=== PATIENT | female | born 2000 | race Caucasian/White ===

== ENCOUNTER 2021-11-06 11:00 | Emergency (ER) | payer OTHER, SELFPAY ==
--- NOTE | ~2021-11-06 | CT_ITS ---
EXAMINATION: CT ABDOMEN AND PELVIS WITHOUT CONTRAST CLINICAL INFORMATION: Epigastric and right lower quadrant tenderness. Guarding. COMPARISON: None TECHNIQUE: Multidetector volumetric imaging was performed from the superior aspect of the liver through the pubic symphysis. Sagittal and coronal reformatted images were obtained on the technologist's workstation. This CT examination was performed using dose optimization techniques as appropriate, variously including the following: *Automated exposure control *Adjustment of mA and/or kV according to patient size (this includes techniques or standardized protocols for targeted exams where dose is matched to indication/reason for exam; i.e. extremities or head) *Use of iterative reconstruction technique DLP: 318 mGy-cm FINDINGS: LUNG BASES: The visualized lung bases are unremarkable. LIVER, GALLBLADDER, AND BILIARY TREE: The liver is normal in size, shape, and attenuation. No focal hepatic lesion or biliary ductal dilatation is present. The gallbladder is unremarkable with no evidence of radiopaque gallstones, gallbladder wall thickening, or obvious pericholecystic inflammatory changes. PANCREAS: Unremarkable. SPLEEN: Unremarkable. ADRENAL GLANDS: Unremarkable. KIDNEYS AND URETERS: The kidneys are normal in size, shape, and attenuation. No hydronephrosis, hydroureter, or calculi seen. No perinephric stranding. BLADDER: Unremarkable. GASTROINTESTINAL TRACT: The stomach is unremarkable. Normal caliber of the small bowel. There is no obstruction. Normal appendix. Decompressed appearance of the sigmoid colon with question of mild wall thickening. The remainder of the colon is unremarkable. No free air. No free fluid. ABDOMINAL WALL: No significant hernia is appreciated. LYMPH NODES: Normal. VASCULAR: Unremarkable. PELVIC VISCERA: The uterus and adnexa are unremarkable. OSSEOUS STRUCTURES: No acute or suspicious osseous abnormality. CT/CT abdomen pelvis wo con IMPRESSION: Normal appendix. Decompressed sigmoid colon with question of mild wall thickening. This could represent a mild colitis. This could also simply be within normal limits. Fleischner guidelines were followed.
--- NOTE | ~2021-11-06 | US_ITS ---
EXAMINATION: US PELVIS CLINICAL INFORMATION: Right adnexal pain. Vaginal bleeding. COMPARISON: None TECHNIQUE: Ultrasound of the pelvis is performed using both transabdominal and transvaginal transducers along with Doppler. Transvaginal imaging is performed due to inadequate visualization transabdominally. FINDINGS: Uterus: The uterus is anteverted and measures 6.4 x 3.6 x 4.2 cm. The double wall endometrial thickness is 0.5 mm. Blood products in the endometrial canal noted. The uterus is smooth in contour and has normal myometrial echogenicity. No visible fibroid. Adnexa: Both ovaries are visualized. There is normal color flow to the adnexa. There is no ovarian torsion. Trace pelvic free fluid. Normal arterial and venous spectral waveforms are seen bilaterally. Right ovary measures 3.6 x 1.9 x 2.6 cm. Multiple peripheral ovarian follicles are noted, greater than 10. Left ovary measures 3.4 x 2.2 x 2.3 cm. Multiple peripheral ovarian follicles are noted, greater than 10. US/US pelvic ovarian doppler IMPRESSION: No active ovarian torsion or suspicious mass. Appearance suggestive of polycystic ovarian syndrome.
--- NOTE | ~2021-11-06 | US_ITS ---
EXAMINATION: US PELVIS CLINICAL INFORMATION: Right adnexal pain. Vaginal bleeding. COMPARISON: None TECHNIQUE: Ultrasound of the pelvis is performed using both transabdominal and transvaginal transducers along with Doppler. Transvaginal imaging is performed due to inadequate visualization transabdominally. FINDINGS: Uterus: The uterus is anteverted and measures 6.4 x 3.6 x 4.2 cm. The double wall endometrial thickness is 0.5 mm. Blood products in the endometrial canal noted. The uterus is smooth in contour and has normal myometrial echogenicity. No visible fibroid. Adnexa: Both ovaries are visualized. There is normal color flow to the adnexa. There is no ovarian torsion. Trace pelvic free fluid. Normal arterial and venous spectral waveforms are seen bilaterally. Right ovary measures 3.6 x 1.9 x 2.6 cm. Multiple peripheral ovarian follicles are noted, greater than 10. Left ovary measures 3.4 x 2.2 x 2.3 cm. Multiple peripheral ovarian follicles are noted, greater than 10. US/US pelvic and transvaginal IMPRESSION: No active ovarian torsion or suspicious mass. Appearance suggestive of polycystic ovarian syndrome.
[2021-11-06 11:03] VITALS: BP 113/68; PULSE 67; RESP 18; TEMP 36.9; O2SAT 100; BMI 22.2
[2021-11-06 11:19] LABS: MANUAL DIFF FLAG NO
[2021-11-06 11:23] LABS: Basophils Percent Auto 0.2 % (0-2); Eosinophils Absolute Auto 0.1 X10*3/uL (0.0-0.4); Eosinophils Percent Auto 0.9 % (0-4); Hematocrit 39.8 % (37.0-47.0); Hemoglobin 12.9 g/dl (12.0-16.0); Imm Gran Abs Auto 0.06 X10*3/uL (0.00-0.03); Imm Gran Pct Auto 0.6 % (0.0-0.4); Lymphocytes Absolute Auto 1.1 X10*3/uL (1.2-4.9); Lymphocytes Percent Auto 11.5 % (20-40); Mean Corpuscular HGB Conc 32.4 g/dl (31.0-35.0); Mean Corpuscular Volume 89.4 fL (80.0-98.0); Mean Platelet Volume 11.1 fL (9.4-12.3); Monocytes Absolute Auto 0.7 X10*3/uL (0.1-1.2); Monocytes Percent Auto 7.6 % (2-11); Neutrophils Absolute Auto 7.5 x10*3/uL (2.0-8.3); Neutrophils Percent Auto 79.2 % (45-73); Platelet Count 234 X10*3/uL (160-400); Red Blood Count 4.45 X10*6/uL (4.20-5.50); Red Cell Distribution Width 13.4 % (11.0-16.0); White Blood Count 9.4 X10*3/uL (4.8-10.8)
[2021-11-06 11:37] LABS: Alanine Aminotransferase 21 U/L (0-31); Alkaline Phosphatase 67 U/L (39-117); Anion Gap 10 (12-20); Aspartate Amino Transferase 19 U/L (5-31); Bilirubin Total 0.7 mg/dL (0.0-1.0); Blood Urea Nitrogen 14 mg/dL (9-16); Calcium 9.4 mg/dL (8.4-10.2); Carbon Dioxide 25 mmol/L (22-29); Chloride 107 mmol/L (96-108); Creatinine Clr Calc Pharmacy 78.9; Estimated Glomerular Filt Rate > 60; Glucose Random 99 mg/dL (60-115); Potassium 4.6 mmol/L (3.3-5.1); Sodium 137 mmol/L (135-145); Total Protein 7.9 g/dL (6.5-8.0)
[2021-11-06 11:40] VITALS: BP 113/63; PULSE 66; RESP 16; TEMP 36.6; O2SAT 100
--- NOTE | 2021-11-06 12:04 | ED_ITS ---
HPI - General Adult General Chief complaint: Abdominal Pain Stated complaint: abd pain vaginal bleeding Time Seen by Provider: 11/06/21 11:49 Source: patient Mode of arrival: ambulatory Limitations: no limitations History of Present Illness HPI narrative: 21-year-old female presents with 2 weeks of right lower quadrant pain and right pelvic pain with intermittent vaginal bleeding. States the pain is constant, is sharp and stabbing, and is worsening. Feels like period cramps. Patient's last menstrual period was October 27, and then she got her period twice in September. She has had some dysuria as well. No nausea, vomiting, diarrhea, vaginal discharge, chest pain, shortness of breath, heart palpitations. States her periods generally come once a month and she does not have spotting in between periods She has never been . She does have a new sex partner, she does not use control or condoms. Patient is not on any medications, states that she was diagnosed hypothyroid, but has not been refilling her levothyroxine medication Related Data Previous Rx's Medication Instructions Recorded doxycycline hyclate 100 mg tablet 100 mg PO BID 7 Days #14 tab 11/06/21 Allergies Allergy/AdvReac Type Severity Reaction Status Date / Time No Known Allergies Allergy Verified 11/06/21 11:08 Review of Systems Constitutional: Constitutional: Denies body ache(s), Denies chills, Denies fatigue, Denies fever(s), Denies headache(s), Denies malaise and Denies weakness Eyes: Eyes: Denies blurry vision and Denies diplopia ENT: Denies vertigo, Denies dizziness, Denies otalgia, Denies headache(s), Denies mouth pain and Denies sore throat Cardiovascular: Cardiovascular: Denies chest pain, Denies syncope, Denies leg edema, Denies lightheadedness, Denies Loss of Consciousness, Denies palpitations and Denies dyspnea Respiratory: Respiratory: Denies chest congestion, Denies cough and Denies dyspnea Gastrointestinal: Gastrointestinal: Reports abdominal pain, Denies hematochezia, Denies coffee ground emesis, Denies constipation, Denies diarrhea, Denies nausea and Denies vomiting Genitourinary: Genitourinary: Reports abnormal vaginal bleeding, Denies genital pruritis, Reports dysuria, Reports pelvic pain, Reports flank pain, Denies urinary incontinence, Denies urinary hesitancy, Denies urinary urgency, Denies vaginal discharge and Denies vaginal odor Musculoskeletal: Musculoskeletal: Reports no additional musculoskeletal complaints Neurologic: Denies confusion, Denies vertigo, Denies dizziness, Denies syncope, Denies headache(s) and Denies weakness Psychiatric: Psychiatric: Denies anxiety, Denies confusion and Denies depression Endocrine: Endocrine: Denies fatigue and Denies palpitations PMF Past Medical History Medical History (Updated 11/06/21 @ 14:58 by DEMETRI Falk) No known health problems Social History Social History Advance Directives: No Advance Directives Information Provided: No Patient : No Physical Exam ED Vital Signs: Vital Signs - 24 hr 11/06/21 11:03 11/06/21 11:40 11/06/21 12:58 Temperature 98.4 F 97.9 F 98.6 F Pulse Rate 67 66 59 Respiratory Rate 18 16 15 Blood Pressure 113/68 113/63 111/61 Pulse Oximetry 100 100 99 BMI result Body Mass Index 22.2 Const General: comfortable, no acute distress, well developed, alert and awake; No confusion Nutritional Appearance: well nourished Orientation/consciousness: patient oriented x3 and No confusion Limitations: no limitations HENMT Head: Yes normal to inspection, Yes normocephalic and Yes atraumatic Ears: hearing grossly normal bilaterally, external ears normal, TM's normal bilaterally and EAC's normal General nose exam: Normal external nose present Face and sinus: Yes normal facial exam and Yes sinuses nontender Mouth: Normal oral and palatal mucosa present Throat: Yes posterior oropharynx normal Eyes Conjunctivae: conjunctivae normal Pupils: Equal, round and reactive pupils present EOM: EOMs intact bilaterally Neck Neck: Yes full ROM, Yes no lymphadenopathy and Yes supple Resp Effort & Inspection: normal respiratory effort and able to speak in complete sentences Auscultation: clear to auscultation bilaterally, no crackles, no rales, no rhonchi and no wheezes Cardio Rate: regular rate Rhythm: regular rhythm Heart sounds: S1 normal heart sound present and S2 normal heart sound present GI Inspection: Yes normal to inspection Palpation (GI): Soft to palpation, Tenderness to palpation present (GI) in the epigastrum, at McBurney's point (tender) and Rovsing's sign positive, Guarding due to palpation present (GI) in the LLQ, in the RLQ and other (epigastric) and not rigid Percussion: Yes normal to percussion Auscultation: normal bowel sounds General: Yes CVA tenderness on the right (mild) External Female Exam: normal external appearance, normal appearance of the urethra, No externally tender and No external swelling Speculum Exam - Vagina: abnormal vaginal discharge bloody, no lesions, vaginal bleeding and nontender Speculum Exam - Cervix: normal appearance of the cervix, normal palpation and Cervical os closed Bimanual exam- vagina & uterus: normal palpation and no cervical motion tenderness Bimanual Exam- Adnexa, other: tender on the right OB/external & speculum: vaginal bleeding Back/Spine/Pelvis Back: CVA tenderness Skin General skin exam: no rashes or lesions noted Neuro General: patient oriented x3 and No confusion Cranial nerves: Yes Equal, round and reactive pupils present Extrem General: Yes normal to inspection and Yes full ROM Psych Appearance: grossly normal Affect: normal affect Attitude: cooperative Thought process: Normal thought process present Course Course Course Narrative: 12:04 pm 21-year-old female presents with 2 weeks of right lower quadrant pain, right pelvic pain, and vaginal bleeding. On exam, patient has stable vitals, is afebrile, has mild right CVA tenderness, has tenderness and guarding in her right lower quadrant, and her epigastrium, diffusely tender throughout her abdomen exam shows vagina bleeding, with right adnexal tenderness. No CMT. As gonorrhea, chlamydia, Trichomonas, BV swabs were all performed. Will get CT with contrast because patient is BMI is 22, need to rule out acute abdominal pathology. Will get pelvic ultrasound for right adnexal tenderness Be due to global IV contrast shortage, will order CT abdomen pelvis with oral contrast, no IV contrast. Reevaluation(s) Reevaluation #1: TSH 4.49, hCG less than 2. Urine shows blood, no evidence of infection No Trichomonas or yeast Ultrasound shows no torsion, normal blood flow, evidence of polycystic ovarian disease US/US pelvic ovarian doppler IMPRESSION: No active ovarian torsion or suspicious mass. Appearance suggestive of polycystic ovarian syndrome. On re-evaluation, patient tells me her pain is better, but she cannot drink the CT oral contrast, it makes her nauseous. She tried to drink it and tells me she threw up twice. Will dry scan patient Reevaluation #2: CTNG returned positive for chlamydia, negative for gonorrhea. Dr Hinojosa states that chlamydia can cause vaginal bleeding. Will not treat patient with an oral control.agent to treat PCOS at this time, as it may be the chlamydia causing bleeding; will treat with Doxy CT shows normal pancreas, normal kidneys, possible mild colitis but that is not consistent with patient's symptoms. Will treat for doxycycline, refer to collar padder blindstitch for polycystic ovarian syndrome, have patient follow-up with PCP for hypothyroidism CT/CT abdomen pelvis wo con IMPRESSION: Normal appendix. Decompressed sigmoid colon with question of mild wall thickening. This could represent a mild colitis. This could also simply be within normal limits.? Medical Decision Making Lab Data Result diagrams: 11/06/21 11:14 11/06/21 11:14 Labs: Lab Results 11/06/21 11/06/21 11/06/21 Range/Units 11:14 11:14 11:57 WBC 9.4 (4.8-10.8) X10*3/uL RBC 4.45 (4.20-5.50) X10*6/uL Hgb 12.9 (12.0-16.0) g/dl Hct 39.8 (37.0-47.0) % MCV 89.4 (80.0-98.0) fL MCH 29.0 (27.0-33.0) pg MCHC 32.4 (31.0-35.0) g/dl RDW 13.4 (11.0-16.0) % Plt Count 234 (160-400) X10*3/uL MPV 11.1 (9.4-12.3) fL Immature Gran % (Auto) 0.6 H (0.0-0.4) % Neut % (Auto) 79.2 H (45-73) % Lymph % (Auto) 11.5 L (20-40) % [place] % (Auto) 7.6 (2-11) % Eos % (Auto) 0.9 (0-4) % Baso % (Auto) 0.2 (0-2) % Lymph # (Auto) 1.1 L (1.2-4.9) X10*3/uL [place] # (Auto) 0.7 (0.1-1.2) X10*3/uL Eos # (Auto) 0.1 (0.0-0.4) X10*3/uL Baso # (Auto) 0.0 (0.0-0.2) X10*3/uL Abs Immat Gran (auto) 0.06 H (0.00-0.03) X10*3/uL Absolute Neuts (auto) 7.5 (2.0-8.3) x10*3/uL Absolute Nucleated RBC 0.000 (0.0-0.012) X10*3/uL Nucleated RBC % (auto) 0.0 (0.0-0.2) /100WBC Sodium 137 (135-145) mmol/L Potassium 4.6 (3.3-5.1) mmol/L Chloride 107 (96-108) mmol/L Carbon Dioxide 25 (22-29) mmol/L Anion Gap 10 L (12-20) BUN 14 (9-16) mg/dL Creatinine 0.81 (0.5-1.4) mg/dL Estim Creat Clear Calc 78.9 Estimated GFR > 60 Random Glucose 99 (60-115) mg/dL Calcium 9.4 (8.4-10.2) mg/dL Total Bilirubin 0.7 (0.0-1.0) mg/dL AST 19 (5-31) U/L ALT 21 (0-31) U/L Alkaline Phosphatase 67 (39-117) U/L Total Protein 7.9 (6.5-8.0) g/dL Albumin 4.0 (3.5-5.0) g/dL TSH 4.49 H (0.32-4.0) uIU/mL Beta HCG, Quant < 2 mIU/mL Urine Color Urine Appearance Urine pH (5.0-8.0) Ur Specific [place] (1.005-1.025) Urine Protein (NEG-TRACE) MG/DL Urine Glucose (UA) (NEG) MG/DL Urine Ketones (NEG) MG/DL Urine Blood (NEG) Urine Nitrite (NEG) Ur Leukocyte Esterase (NEG) Urine RBC (0) /HPF Urine WBC (0-4) /HPF Ur Squamous Epith Cells /LPF Urine Bacteria /LPF Urine Mucus /LPF Urine Test NEGATIVE (NEGATIVE) Chlam trachomat DNA PCR (Not Detect.) N.gonorrhoeae DNA (PCR) (Not Detect.) 11/06/21 11/06/21 Range/Units 11:57 12:41 WBC (4.8-10.8) X10*3/uL RBC (4.20-5.50) X10*6/uL Hgb (12.0-16.0) g/dl Hct (37.0-47.0) % MCV (80.0-98.0) fL MCH (27.0-33.0) pg MCHC (31.0-35.0) g/dl RDW (11.0-16.0) % Plt Count (160-400) X10*3/uL MPV (9.4-12.3) fL Immature Gran % (Auto) (0.0-0.4) % Neut % (Auto) (45-73) % Lymph % (Auto) (20-40) % [place] % (Auto) (2-11) % Eos % (Auto) (0-4) % Baso % (Auto) (0-2) % Lymph # (Auto) (1.2-4.9) X10*3/uL [place] # (Auto) (0.1-1.2) X10*3/uL Eos # (Auto) (0.0-0.4) X10*3/uL Baso # (Auto) (0.0-0.2) X10*3/uL Abs Immat Gran (auto) (0.00-0.03) X10*3/uL Absolute Neuts (auto) (2.0-8.3) x10*3/uL Absolute Nucleated RBC (0.0-0.012) X10*3/uL Nucleated RBC % (auto) (0.0-0.2) /100WBC Sodium (135-145) mmol/L Potassium (3.3-5.1) mmol/L Chloride (96-108) mmol/L Carbon Dioxide (22-29) mmol/L Anion Gap (12-20) BUN (9-16) mg/dL Creatinine (0.5-1.4) mg/dL Estim Creat Clear Calc Estimated GFR Random Glucose (60-115) mg/dL Calcium (8.4-10.2) mg/dL Total Bilirubin (0.0-1.0) mg/dL AST (5-31) U/L ALT (0-31) U/L Alkaline Phosphatase (39-117) U/L Total Protein (6.5-8.0) g/dL Albumin (3.5-5.0) g/dL TSH (0.32-4.0) uIU/mL Beta HCG, Quant mIU/mL Urine Color YELLOW Urine Appearance CLEAR Urine pH 5.5 (5.0-8.0) Ur Specific [place] >= 1.030 H (1.005-1.025) Urine Protein NEG (NEG-TRACE) MG/DL Urine Glucose (UA) NEG (NEG) MG/DL Urine Ketones NEG (NEG) MG/DL Urine Blood 2+ H (NEG) Urine Nitrite NEG (NEG) Ur Leukocyte Esterase NEG (NEG) Urine RBC 0-2 (0) /HPF Urine WBC 1-4 (0-4) /HPF Ur Squamous Epith Cells 3+ /LPF Urine Bacteria TRACE /LPF Urine Mucus 1+ /LPF Urine Test (NEGATIVE) Chlam trachomat DNA PCR DETECTED A (Not Detect.) N.gonorrhoeae DNA (PCR) NOT DETECTED (Not Detect.) Discharge Plan Discharge Clinical Impression: Hypothyroid, Vagina bleeding, Polycystic bilateral ovaries, Chlamydia infection Patient Disposition: Home, Self-Care Instructions: Dysfunctional Uterine Bleeding (ED), Chlamydia (ED), Sexually Transmitted Diseases (ED), Safe Sex Practices (ED), Hypothyroidism (ED) Additional Instructions: You have chlamydia. This is a sexually transmitted disease. This is most likely the reason for your vaginal bleeding. I have prescribed antibiotics to her pharmacy to treat this, please take them for 7 days. Please inform her sexual contacts that you are positive for chlamydia and have them tested and treated. Call Dr Greene at [phone] for a follow up appointment for your vaginal bleeding and the cysts on your ovaries. Call your PCP to be re-evaluated for your thyroid; your thyroid hormone shows you are mildly hypothyroid, and you should be re-started on your thyroid medica tion. Please return to emergency room for any new or concerning symptoms Prescriptions: New doxycycline hyclate 100 mg tablet 100 mg PO BID 7 Days Qty: 14 0RF Referrals: Nasir Greene MD [Physician] -
[2021-11-06 12:10] LABS: Appearance Urine CLEAR; Color Urine YELLOW; Glucose Urine UA NEG (NEG); Leukocyte Esterase Urine NEG (NEG); Nitrite Urine NEG (NEG); PH 5.5 (5.0-8.0); Specific Gravity - Urine >= 1.030 (1.005-1.025); UACC Culture Trigger NO; Urine Blood 2+ (NEG); Urine Ketones NEG (NEG); Urine Protein NEG (NEG-TRACE)
[2021-11-06 12:13] LABS: UPreg QC Valid YES; Urine Pregnancy NEGATIVE (NEGATIVE)
[2021-11-06 12:32] LABS: Squamous Epithelial Cell Urine 3+ /LPF
[2021-11-06 12:34] LABS: Bacteria Urine TRACE /LPF; Mucus Urine 1+ /LPF; RBC Urine 0-2 /HPF (0)
[2021-11-06 12:52] LABS: HCG Quantitative < 2 mIU/mL; Thyroid Stimulating Hormone 4.49 uIU/mL (0.32-4.0)
[2021-11-06 12:58] VITALS: BP 111/61; PULSE 59; RESP 15; TEMP 37; O2SAT 99
[2021-11-06 14:24] LABS: CT PCR DETECTED (Not Detect.); NG PCR NOT DETECTED (Not Detect.)
[2021-11-06] MEDS: cefTRIAXone sodium 500 MG, Lidocaine HCl 1 % MPF 1 ML IM (15:03)
[2021-11-07 10:56] LABS: BV Int Neg Control Negative (Negative); BV Int Pos Control Positive (Positive)
== END 2021-11-06 15:16 | disposition home or self-care (01) ==
PROVIDERS: Physician Assistant; Emergency Provider Emergency Medicine; PCP Pediatrics
DX: A74.9 Chlamydial infection, unspecified (principal); E28.2 Polycystic ovarian syndrome; N93.8 Other specified abnormal uterine and vaginal bleeding; R10.13 Epigastric pain; E03.9 Hypothyroidism, unspecified; Z79.899 Other long term (current) drug therapy
CPT/HCPCS: 36415; 74176; 76830; 76856; 80053; 81001; 81025; 84443; 84702; 85025; 87480; 87491; 87510; 87591; 87660; 93975; 96372; 96374; 99284; J0696